=== PATIENT | female | born 1980 | race Caucasian/White ===

== ENCOUNTER 2016-08-01 13:45 | Outpatient (RCR) | payer OTHER ==
[2016-09-03] MEDS ORDERED: MULTIPLE VITAMI1 CAP PO (15:38)
[2016-09-03] MEDS ORDERED: NEURONTIN300 MG/CAP PO (15:39)
[2016-09-03] MEDS ORDERED: NORVASC 5MG5 MG/TAB PO (15:39)
[2016-09-03] MEDS ORDERED: COPPER PO (15:40)
[2016-09-03] MEDS ORDERED: TRANDATE 100MG100 MG PO (15:44)
[2016-09-03] MEDS ORDERED: DYAZIDE 25 MG-31 CAP PO (15:45)
[2016-09-03] MEDS ORDERED: LAMICTAL150 MG PO (15:46)
[2016-09-03] MEDS ORDERED: AMBIEN 5MG TABLE5 MG PO (15:46)
[2016-09-03] MEDS ORDERED: MELATONIN0.3 MG PO (15:46)
[2016-10-22] MEDS ORDERED: INDERAL80 MG PO (12:02)
[2016-10-22] MEDS ORDERED: VRAYLAR3 MG PO (12:03)
== END 2016-08-10 | disposition still patient (30) ==
LOC: WSC
DX: G62.9 Polyneuropathy, unspecified (principal)

== ENCOUNTER → 2016-08-12 | Outpatient (CLI) | payer OTHER ==
[~2016-08-12] MED LIST: AMBIEN 5MG TABLE5 MG PO; COPPER PO; DYAZIDE 25 MG-31 CAP PO; INDERAL80 MG PO; LAMICTAL150 MG PO; MELATONIN0.3 MG PO; MULTIPLE VITAMI1 CAP PO; NEURONTIN300 MG/CAP PO; NORVASC 5MG5 MG/TAB PO; TRANDATE 100MG100 MG PO; VRAYLAR3 MG PO
== END ==
LOC: BHSO 13:04
DX: F31.81 Bipolar II disorder (principal)

== ENCOUNTER → 2016-08-18 | Outpatient (CLI) | payer OTHER | LOC: BHSO 12:56 | DX: F33.2 Major depressive disorder, recurrent severe without psychotic features (principal) ==

== ENCOUNTER → 2016-09-01 | Outpatient (CLI) | payer OTHER | LOC: BHSO 12:59 | DX: F31.81 Bipolar II disorder (principal) ==

== ENCOUNTER → 2016-09-08 | Outpatient (CLI) | payer OTHER | LOC: BHSO 11:24 | DX: F31.81 Bipolar II disorder (principal) ==

== ENCOUNTER → 2016-10-06 | Outpatient (CLI) | payer OTHER | LOC: BHSO 13:21 | DX: F31.81 Bipolar II disorder (principal) ==

== ENCOUNTER → 2016-11-11 | Outpatient (RCR) | payer OTHER | END | disposition home or self-care (01) | LOC: WSPT → WSC 08-13 11:00 → WSPT 08-15 13:30 → WSC 08-26 14:00 → WSPT 08-28 11:15 → WSC 09-26 15:00 → WSPT 10-07 10:00 → WSC 10-22 09:00 → WSPT 10-24 13:00 | DX: G62.89 Other specified polyneuropathies (principal); R53.1 Weakness ==

== ENCOUNTER 2016-11-12 11:00 | Outpatient (RCR) | payer OTHER ==
[2016-09-01] VITALS (9 sets, daily range): BP systolic 121–130; BP diastolic 64–103; PULSE 52–108; TEMP 65–98.7
[2016-09-01 15:27] LABS: CALCIUM 10.1 mg/dL (8.4-10.2); CREATININE, serum 0.66 mg/dL (0.52-1.25); POTASSIUM 3.5 mmol/L (3.4-5.0)
[2016-09-03 14:48] VITALS: BP 116/66; PULSE 91; TEMP 98.1
[2016-09-03 15:30] VITALS: BP 119/77; PULSE 94; TEMP 98.2
[2016-09-03 15:49] VITALS: BP 116/78; PULSE 92; TEMP 98.3
[2016-09-03 16:09] VITALS: BP 111/72; PULSE 103; TEMP 98.2
[2016-09-03 16:45] VITALS: BP 115/73; PULSE 95; TEMP 98.5
[2016-09-03 17:32] VITALS: BP 115/61; PULSE 97; TEMP 98.3
[2016-09-05 14:30] VITALS: BP 117/82; PULSE 85; TEMP 98.5
[2016-09-05 15:16] VITALS: BP 121/82; PULSE 97; TEMP 98.6
[2016-09-05 16:00] VITALS: BP 115/79; PULSE 102; TEMP 98.8
[2016-09-05 16:40] VITALS: BP 110/78; PULSE 99; TEMP 98.8
[2016-09-05 17:19] VITALS: BP 117/83; PULSE 93; TEMP 98.3
[2016-09-10] VITALS (8 sets, daily range): BP systolic 116–134; BP diastolic 80–87; PULSE 83–95; TEMP 97.9–98.7
[2016-09-17] VITALS (9 sets, daily range): BP systolic 113–132; BP diastolic 66–91; PULSE 94–105; TEMP 97.3–98.3
[2016-09-17 11:52] LABS: CALCIUM 9.3 mg/dL (8.4-10.2); CREATININE, serum 0.56 mg/dL (0.52-1.25); POTASSIUM 3.8 mmol/L (3.4-5.0)
[2016-09-24] VITALS (9 sets, daily range): BP systolic 117–134; BP diastolic 79–99; PULSE 87–99; TEMP 97.6–98.3
[2016-09-24 12:06] LABS: CALCIUM 9.2 mg/dL (8.4-10.2); CREATININE, serum 0.58 mg/dL (0.52-1.25); POTASSIUM 3.7 mmol/L (3.4-5.0)
[2016-10-01 11:09] VITALS: BP 129/86; PULSE 93
[2016-10-01 11:45] VITALS: BP 129/86; PULSE 93
[2016-10-01 12:00] VITALS: BP 123/91; PULSE 95
[2016-10-01 12:15] VITALS: BP 128/92; PULSE 91
[2016-10-01 12:30] VITALS: BP 134/91; PULSE 98
[2016-10-01 12:41] LABS: CALCIUM 9.7 mg/dL (8.4-10.2); CREATININE, serum 0.57 mg/dL (0.52-1.25); POTASSIUM 3.7 mmol/L (3.4-5.0)
[2016-10-08] VITALS (9 sets, daily range): BP systolic 104–126; BP diastolic 64–84; PULSE 62–79; TEMP 97.3–98.3
[2016-10-15] VITALS (7 sets, daily range): BP systolic 104–121; BP diastolic 58–81; PULSE 72–78; TEMP 98.1
[2016-10-15 11:14] LABS: ALBUMIN 4.7 gm/dL (3.5-5.0); BILIRUBIN,TOTAL 0.8 mg/dL (0.0-1.0); CALCIUM 9.6 mg/dL (8.4-10.2); CREATININE, serum 0.7 mg/dL (0.52-1.25); TOTAL PROTEIN 9.6 gm/dL (6.4-8.2)
[2016-10-22] VITALS (8 sets, daily range): BP systolic 94–130; BP diastolic 56–75; PULSE 69–77; TEMP 97–98
[2016-10-22 11:42] LABS: CALCIUM 9.5 mg/dL (8.4-10.2); CREATININE, serum 0.63 mg/dL (0.52-1.25); POTASSIUM 3.8 mmol/L (3.4-5.0)
[2016-10-29] VITALS (9 sets, daily range): BP systolic 105–118; BP diastolic 56–76; PULSE 60–90; TEMP 97.4–98.4
[2016-10-29 12:48] LABS: CALCIUM 9.5 mg/dL (8.4-10.2); CREATININE, serum 0.7 mg/dL (0.52-1.25); POTASSIUM 3.7 mmol/L (3.4-5.0)
[2016-11-05] VITALS (7 sets, daily range): BP systolic 109–119; BP diastolic 69–97; PULSE 66–73; TEMP 97.7–98.3
[2016-11-05 11:27] LABS: CALCIUM 9.6 mg/dL (8.4-10.2); CREATININE, serum 0.6 mg/dL (0.52-1.25); POTASSIUM 3.7 mmol/L (3.4-5.0)
[~2016-11-12] VITALS: Ht 177.8 cm; Wt 87.0 kg
[2016-11-12] VITALS (7 sets, daily range): BP systolic 99–131; BP diastolic 65–91; PULSE 67–72; TEMP 97.5–98.5
[2016-11-12 11:48] LABS: CALCIUM 9.9 mg/dL (8.4-10.2); CREATININE, serum 0.58 mg/dL (0.52-1.25); POTASSIUM 3.6 mmol/L (3.4-5.0)
== END 2016-11-12 16:06 | disposition home or self-care (01) ==
LOC: EUO 11:00
PROVIDERS: Internal Medicine
DX: G61.81 Chronic inflammatory demyelinating polyneuritis (principal)
CPT/HCPCS: J1459

== ENCOUNTER 2016-11-27 10:30 | Outpatient (RCR) | payer OTHER | END 2017-02-16 | disposition home or self-care (01) | LOC: WSC → WSPT 10:30 | DX: G62.89 Other specified polyneuropathies (principal) ==

== ENCOUNTER → 2016-12-01 | Outpatient (CLI) | payer OTHER | LOC: BHSO 13:23 | DX: F31.81 Bipolar II disorder (principal) ==

== ENCOUNTER → 2017-01-06 | Outpatient (CLI) | payer OTHER | LOC: BHSO 09:39 | DX: F31.81 Bipolar II disorder (principal) ==

== ENCOUNTER → 2017-03-06 | Outpatient (CLI) | payer OTHER | LOC: BHSO 10:16 | DX: F31.81 Bipolar II disorder (principal) ==

== ENCOUNTER → 2017-05-26 | Outpatient (CLI) | payer OTHER | LOC: COL.RAD 08:04 | DX: M84.374D Stress fracture, right foot, subsequent encounter for fracture with routine healing (principal); M25.774 Osteophyte, right foot; M19.071 Primary osteoarthritis, right ankle and foot; M20.11 Hallux valgus (acquired), right foot ==

== ENCOUNTER → 2017-06-03 | Outpatient (CLI) | payer OTHER | LOC: BHSO 10:56 | DX: F31.81 Bipolar II disorder (principal) ==

== ENCOUNTER → 2017-07-08 | Outpatient (CLI) | payer OTHER | LOC: BHSO 10:53 | DX: F33.1 Major depressive disorder, recurrent, moderate (principal) ==

== ENCOUNTER → 2017-08-17 | Outpatient (CLI) | payer OTHER | LOC: BHSO 11:04 | DX: F33.1 Major depressive disorder, recurrent, moderate (principal) ==

== ENCOUNTER → 2017-09-24 | Outpatient (CLI) | payer MEDICARE, OTHER | LOC: BHSO 13:55 | DX: F31.81 Bipolar II disorder (principal) | CPT/HCPCS: G0463 ==

== ENCOUNTER → 2017-11-25 | Outpatient (CLI) | payer MEDICARE, OTHER | LOC: BHSO 10:54 | DX: F31.81 Bipolar II disorder (principal) | CPT/HCPCS: G0463 ==

== ENCOUNTER → 2018-01-07 | Outpatient (CLI) | payer MEDICARE, OTHER | LOC: BHSO 10:54 | DX: F31.81 Bipolar II disorder (principal) | CPT/HCPCS: G0463 ==

== ENCOUNTER → 2018-03-10 | Outpatient (CLI) | payer MEDICARE, OTHER | LOC: BHSO 10:56 | DX: F31.77 Bipolar disorder, in partial remission, most recent episode mixed (principal) | CPT/HCPCS: G0463 ==

== ENCOUNTER → 2018-06-28 | Outpatient (CLI) | payer MEDICARE, OTHER | LOC: BHSO 11:14 | DX: F31.81 Bipolar II disorder (principal) ==

== ENCOUNTER → 2018-12-07 | Outpatient (CLI) | payer MEDICARE, OTHER | LOC: BHSO 11:13 | DX: F41.1 Generalized anxiety disorder (principal) | CPT/HCPCS: G0463 ==

== ENCOUNTER → 2019-01-06 | Outpatient (CLI) | payer MEDICARE, OTHER | LOC: BHSO 11:38 | DX: F41.1 Generalized anxiety disorder (principal) | CPT/HCPCS: G0463 ==

== ENCOUNTER 2022-02-28 19:16 | Emergency (ER) | payer MEDICARE, OTHER ==
[~2022-02-28] VITALS: Ht 170.2 cm; Wt 80.5 kg
[2022-02-28 19:23] VITALS: TEMP 98.6
[2022-02-28 20:08] LABS: BASO # 0.1 K/mm3 (0.0-0.2); EOS % 0.7 % (0.0-4.0); GRAN # 3.3 K/mm3 (1.4-6.5); GRAN % 54.4 % (42.2-75.2); HEMATOCRIT 45.7 % (37.0-47.0); HEMOGLOBIN 16.2 g/dl (12.5-16.0); LYMPH % 32.5 % (20.0-51.0); MEAN CELL VOLUME 86 fl (80.0-100.0); MEAN CORPUSCULAR HEMOGLOBIN 31 pg (27-31); MEAN CORPUSCULAR HGB CONC 35 g/dl (33.0-37.0); MEAN PLATELET VOLUME 10.8 fl (7.4-10.4); MONO # 0.7 K/mm3 (0.1-0.6); MONO % 11.2 % (1.7-9.3); PLATELET COUNT 278 K/mm3 (130-400); RED BLOOD COUNT 5.29 M/mm3 (4.10-5.30)
[2022-02-28 20:09] LABS: COLLECTION METHOD CLEAN CATCH
[2022-02-28 20:24] LABS: MUCOUS Present (NOT PRESENT); PH 7 (5-8); SQUAMOUS EPITHELIAL 0-2 /hpf (0-10); TRICYCLIC ANTIDEPRESS URINE NEGATIVE; URINE APPEARANCE Clear (CLEAR/HAZY); URINE BACTERIA None Seen /hpf (NONE SEEN); URINE BLOOD Negative (NEGATIVE); URINE COLOR Yellow (YELLOW); URINE GLUCOSE Negative (NEGATIVE); URINE KETONE Negative (NEGATIVE); URINE NITRATE Negative (NEGATIVE); URINE PROTEIN(semi-quant) Negative (NEGATIVE); URINE RBC 0-2 /hpf (0-2); URINE UROBILINOGEN >=4.0 (NEGATIVE)
[2022-02-28 20:34] LABS: ALBUMIN 4.1 gm/dL (3.5-5.0); BILIRUBIN,TOTAL 1.6 mg/dL (0.2-1.2); CALCIUM 8.9 mg/dL (8.4-10.2); CREATININE, serum 0.89 mg/dL (0.57-1.11); TOTAL PROTEIN 7.7 gm/dL (6.2-8.1)
[2022-02-28 20:41] LABS: POTASSIUM 2.9 mmol/L (3.5-4.5)
[2022-02-28] MEDS ORDERED: K-DUR20 MEQ PO (21:24)
[2022-02-28] MEDS ORDERED: ZOFRAN8 MG PO (21:41)
[2022-02-28 21:45] LABS: AMYLASE 58 U/L (25-125); LIPASE 41 U/L (8-78)
[2022-02-28 21:55] VITALS: BP 127/89; PULSE 78
== END 2022-02-28 22:06 | disposition home or self-care (01) ==
LOC: COL.ER 19:16
PROVIDERS: Nurse Practitioner Family
DX: E87.6 Hypokalemia (principal); E86.0 Dehydration; R74.8 Abnormal levels of other serum enzymes; F10.10 Alcohol abuse, uncomplicated; R11.2 Nausea with vomiting, unspecified
CPT/HCPCS: J2405; J7030; Q9967

== ENCOUNTER 2022-11-14 12:44 | Outpatient (CLI) | payer MEDICARE, OTHER ==
[2022-11-14] VITALS (7 sets, daily range): BP systolic 123–145; BP diastolic 90–97; PULSE 70–77; TEMP 97.9
[~2022-11-14] VITALS: Ht 177.8 cm; Wt 87.5 kg
[~2022-11-14 12:44] MED LIST changes: +K-DUR20 MEQ PO; +ZOFRAN8 MG PO
[2022-11-14] MEDS ORDERED: KLONOPIN 0.5MG0.5 MG PO (13:18)
[2022-11-14] MEDS ORDERED: LIPITOR20 MG PO (13:19)
[2022-11-14] MEDS ORDERED: DYAZIDE 25 MG-31 CAP PO (13:19)
[2022-11-14] MEDS ORDERED: BIOTIN800 MCG PO (13:20)
[2022-11-14] MEDS ORDERED: AMOXICILLIN 8751 TAB PO (13:21)
[2022-11-14] MEDS ORDERED: COPPER GLUCONATE PO (13:21)
[2022-11-14] MEDS ORDERED: INDERAL 10MG10 MG PO (13:22)
[2022-11-14] MEDS ORDERED: MYSOLINE 5050 MG/TAB PO (13:23)
[2022-11-14] MEDS ORDERED: MAG-OX 400400 MG/TAB PO (13:23)
[2022-11-14] MEDS ORDERED: BUSPAR DIVIDOSE15 MG PO (13:24)
[2022-11-14] MEDS ORDERED: VIIBRYD40 MG PO (13:24)
[2022-11-14 15:06] LABS: GLUCOSE,CSF 55 mg/dL (40-70); TOTAL PROTEIN,CSF 47 mg/dL (15-45)
--- NOTE | 2022-11-14 15:20 | NUR ---
Discharge instructions given to pt.Pt verbalizes understanding.Pt escorted out by this nurse.
[2022-11-14 15:33] LABS: CSF APPEARANCE CLEAR; CSF COLOR COLORLESS; CSF RBC 49 /mm3 (0-0)
[2022-11-14 15:59] LABS: CSF MONONUCLEAR 100 % (70-100); CSF POLYMORPHONUCLEAR 0 % (0-6)
== END 2022-11-14 15:41 ==
LOC: COL.RAD 12:44
PROVIDERS: Psychiatry & Neurology Neurology
DX: G60.8 Other hereditary and idiopathic neuropathies (principal)

== ENCOUNTER 2023-06-03 10:35 | Emergency (ER) | payer MEDICARE, OTHER ==
[~2023-06-03] VITALS: Ht 170.2 cm; Wt 81.8 kg
[~2023-06-03 10:35] MED LIST changes: +AMOXICILLIN 8751 TAB PO; +BIOTIN800 MCG PO; +BUSPAR DIVIDOSE15 MG PO; +COPPER GLUCONATE PO; +INDERAL 10MG10 MG PO; +KLONOPIN 0.5MG0.5 MG PO; +LIPITOR20 MG PO; +MAG-OX 400400 MG/TAB PO; +MYSOLINE 5050 MG/TAB PO; +VIIBRYD40 MG PO
[2023-06-03 10:58] VITALS: TEMP 98.8
[2023-06-03 12:20] LABS: BASO # 0.1 K/mm3 (0.0-0.2); EOS # 0.1 K/mm3 (0.0-0.7); EOS % 1.2 % (0.0-4.0); GRAN # 4.6 K/mm3 (1.4-6.5); GRAN % 79.4 % (42.2-75.2); HEMATOCRIT 41.8 % (37.0-47.0); HEMOGLOBIN 14.2 g/dl (12.5-16.0); LYMPH # 0.8 K/mm3 (1.2-3.4); LYMPH % 14.4 % (20.0-51.0); MEAN CELL VOLUME 95 fl (80.0-100.0); MEAN CORPUSCULAR HEMOGLOBIN 32 pg (27-31); MEAN CORPUSCULAR HGB CONC 34 g/dl (33.0-37.0); MEAN PLATELET VOLUME 11.2 fl (7.4-10.4); MONO # 0.2 K/mm3 (0.1-0.6); MONO % 3.8 % (1.7-9.3); PLATELET COUNT 146 K/mm3 (130-400); RED BLOOD COUNT 4.38 M/mm3 (4.10-5.30); REDCELL DISTRIBUTION WIDTH-CV 13.2 % (11.5-14.5)
[2023-06-03 12:39] LABS: ALBUMIN 3.7 gm/dL (3.5-5.0); BILIRUBIN,TOTAL 0.8 mg/dL (0.2-1.2); CALCIUM 8.9 mg/dL (8.4-10.2); CREATININE, serum 0.78 mg/dL (0.57-1.11); POTASSIUM 3.5 mmol/L (3.5-4.5); TOTAL PROTEIN 7.3 gm/dL (6.2-8.1)
[2023-06-03] MEDS ORDERED: PREDNISONE50 MG PO (12:52)
[2023-06-03] MEDS ORDERED: ZITHROMAX Z PA250 MG PO (12:52)
[2023-06-03] MEDS ORDERED: PROAIR HFA0.09 MG/AC IH (12:52)
[2023-06-03 13:00] VITALS: BP 116/78; PULSE 81
== END 2023-06-03 13:00 | disposition home or self-care (01) ==
LOC: COL.ER 10:35
PROVIDERS: Physician Assistant
DX: J20.9 Acute bronchitis, unspecified (principal); Z87.891 Personal history of nicotine dependence; Z88.1 Allergy status to other antibiotic agents
CPT/HCPCS: J7512

== ENCOUNTER 2023-11-19 10:51 | Outpatient (CLI) | payer MEDICARE, OTHER ==
[2023-11-19] VITALS (10 sets, daily range): BP systolic 114–125; BP diastolic 73–89; PULSE 73–84; TEMP 99
[~2023-11-19] VITALS: Ht 170.2 cm; Wt 86.3 kg
[~2023-11-19 10:51] MED LIST changes: -INDERAL 10MG10 MG PO; +INDERAL 20MG20 MG PO; +PREDNISONE50 MG PO; +PROAIR HFA0.09 MG/AC IH; +ZITHROMAX Z PA250 MG PO
[2023-11-19] MEDS ORDERED: Immune Globulin (Gammagard) 30 G/300 ML IV SOLN IV SCH (11:30)
[2023-11-19] MEDS ORDERED: IMMUNE GLOBULIN 10 GM/100 ML IV SCH (11:30)
[2023-11-19] MEDS ORDERED: VITAMIN B122500 MCG SL (12:29)
[2023-11-19] MEDS ORDERED: SEROQUEL50 MG PO (12:31)
== END 2023-11-19 15:58 ==
LOC: EUO 10:51
DX: G61.81 Chronic inflammatory demyelinating polyneuritis (principal)
CPT/HCPCS: J1569

== ENCOUNTER 2024-02-09 10:52 | Outpatient (CLI) | payer MEDICARE, OTHER ==
[~2024-02-09] VITALS: Ht 170.2 cm; Wt 81.9 kg
[~2024-02-09 10:52] MED LIST changes: +SEROQUEL50 MG PO; +VITAMIN B122500 MCG SL
[2024-02-09 11:13] VITALS: BP 118/84; PULSE 71; TEMP 98.4
[2024-02-09] MEDS ORDERED: Immune Globulin (Gammagard) 30 G/300 ML IV SOLN IV ONE (11:15)
[2024-02-09] MEDS ORDERED: BIOTIN5000 MCG PO (11:16)
[2024-02-09] MEDS ORDERED: B-121000 MCG PO (11:16)
[2024-02-09] MEDS ORDERED: ATIVAN 0.50.5 MG/TAB PO (11:18)
[2024-02-09] MEDS ORDERED: MAXZIDE-25MG TA1 TAB PO (11:26)
[2024-02-09 11:30] VITALS: BP 121/88; PULSE 70
[2024-02-09 12:00] VITALS: BP 121/88; PULSE 72
[2024-02-09 12:30] VITALS: BP 121/88; BP 135/97; PULSE 67; PULSE 68
[2024-02-09 13:00] VITALS: BP 124/90; PULSE 66
[2024-02-09 13:30] VITALS: BP 138/95; PULSE 65
--- NOTE | 2024-02-09 13:45 | NUR ---
Pt tolerated IGG well. IV Dc'd, site wrapped with coban. She exits dept with steady gait.
== END 2024-02-09 13:45 | disposition home or self-care (01) ==
LOC: EUO 10:52
DX: G61.81 Chronic inflammatory demyelinating polyneuritis (principal)
CPT/HCPCS: J1569